=== PATIENT | female | born 1995 | race Caucasian/White ===

== ENCOUNTER 2017-02-06 06:33 | Emergency (ER) | payer OTHER, SELFPAY ==
[2017-02-06] MEDS ORDERED: METFORMIN (06:38)
[2017-02-06] MEDS ORDERED: [UNRECOGNIZED DRUG - OTHER] IM (06:38)
[2017-02-06] MEDS ORDERED: ANTIDEPRESSANT (06:38)
[2017-02-06] MEDS ORDERED: AMLODIPINE PO (06:38)
[2017-02-06] MEDS ORDERED: SPIRONOLACTONE PO (06:38)
[2017-02-06 07:02] LABS: BASO % 0.2 % (0-2); EOS % 1.6 % (0-7); EOSINOPHIL ABSOLUTE COUNT 0.1 tho/cmm (0.0-0.7); HCT-HEMATOCRIT 45.5 % (34.0-49.0); HGB-HEMOGLOBIN 15.8 gm/dl (12.0-15.5); IMMATURE GRANULOCYTES ABSOLUTE 0.02 tho/cmm (0-0.03); IMMATURE GRANULOCYTES PERCENT 0.2 % (0-0.3); LYMPH % 36.3 % (20-45); MCH (MEAN CORPUSCULAR HGB) 28.8 pg (28.0-32.0); MCHC MEAN CORPUSCULAR HGB CONC 34.7 % (32.0-36.0); MCV (MEAN CELL VOLUME) 82.9 fl (82.0-96.0); MEAN PLATELET VOLUME 10.8 cmc (9.4-12.4); MONO % 7.9 % (0-12); MONOCYTE ABSOLUTE COUNT 0.6 tho/cmm (0.0-1.2); NEUTROPHIL ABSOLUTE COUNT 4.4 tho/cmm (1.6-8.0); NEUTROPHIL-AUTOMATED 4.4 tho/cmm (1.6-8.0); NEUTROPHILS % 53.8 % (40-80); PLATELET COUNT 332 tho/cmm (150-450); RED BLOOD COUNT 5.49 mil/cmm (4.00-5.20); RED CELL DISTRIBUTION WIDTH 12.8 % (12.4-16.4); WHITE BLOOD COUNT 8.2 tho/cmm (4.0-10.0)
[2017-02-06] MEDS ORDERED: NORVASC5 M2 PO (07:10)
[2017-02-06] MEDS ORDERED: ALDACTONE50 M1 (07:11)
[2017-02-06] MEDS ORDERED: WELLBUTRIN XL150 M1 PO (07:11)
[2017-02-06 07:13] LABS: ANION GAP 17 mmol/L (0-20); BLOOD UREA NITROGEN 12 mg/dl (6-24); CALCIUM 9.8 mg/dl (8.5-10.5); CARBON DIOXIDE-VENOUS 20 mmol/L (22-32); CHLORIDE 108 mmol/l (96-110); CREATININE 0.93 mg/dl (0.50-1.10); GLUCOSE 107 mg/dL (70-110); SODIUM 141 mmol/L (135-145); eGFR VALUE FOR BLACK >90 mL/Min
[2017-02-06 07:14] LABS: PREGNANCY-SERUM NEGATIVE (NEGATIVE)
== END 2017-02-06 09:35 ==
LOC: EDMED 06:33
PROVIDERS: Emergency Medicine
DX: R07.89 Other chest pain (principal); M54.9 Dorsalgia, unspecified; R06.4 Hyperventilation; I10 Essential (primary) hypertension; Z90.89 Acquired absence of other organs; Z79.899 Other long term (current) drug therapy
CPT/HCPCS: J1885; J7030; Q9967